=== PATIENT | female | born 1980 | race Caucasian/White ===

== ENCOUNTER 2019-03-05 12:51 | Emergency (ER) | payer MEDICAID ==
[~2019-03-05] VITALS: Ht 157.5 cm; Wt 65.9 kg
[2019-03-05 13:04] VITALS: BP 98/54
== END 2019-03-05 16:15 | disposition left against medical advice (07) ==
LOC: ER 12:51
DX: R06.02 Shortness of breath (principal); R07.9 Chest pain, unspecified; Z53.21 Procedure and treatment not carried out due to patient leaving prior to being seen by health care provider
CPT/HCPCS: 71045; 93005

== ENCOUNTER 2019-10-25 17:14 | Emergency (ER) | payer MEDICAID ==
[~2019-10-25] VITALS: Ht 165.1 cm; Wt 80.0 kg
[~2019-10-25 17:14] MED LIST: LIDOcaine 1% W/epiNEPHrine 1:100,000 20ml vial ONE
[2019-10-25 17:22] VITALS: BP 130/88
[2019-10-25] MEDS ORDERED: CEPH250T PO (19:12)
[2019-10-25] MEDS ORDERED: BACDS PO (19:12)
== END 2019-10-25 19:43 | disposition home or self-care (01) ==
LOC: ER 17:15
DX: L02.415 Cutaneous abscess of right lower limb (principal); Z88.8 Allergy status to other drugs, medicaments and biological substances; Z88.5 Allergy status to narcotic agent; Z60.2 Problems related to living alone; Z79.2 Long term (current) use of antibiotics; Z79.899 Other long term (current) drug therapy
CPT/HCPCS: 10060; 99283

== ENCOUNTER 2021-08-31 00:02 | Emergency (ER) | payer MEDICAID ==
[~2021-08-31] VITALS: Ht 157.5 cm; Wt 75.0 kg
[2021-08-31 00:31] VITALS: BP 133/80
[2021-08-31] MEDS ORDERED: LIDOcaine 1% 30ml preserv. free vial IJ ONE (01:05)
== END 2021-08-31 07:24 | disposition left against medical advice (07) ==
LOC: ER 00:04
DX: L02.416 Cutaneous abscess of left lower limb (principal); F17.200 Nicotine dependence, unspecified, uncomplicated; Z60.2 Problems related to living alone; Z88.5 Allergy status to narcotic agent; Z88.8 Allergy status to other drugs, medicaments and biological substances
CPT/HCPCS: 99281

== ENCOUNTER 2022-02-16 18:30 | Emergency (ER) | payer MEDICAID ==
[~2022-02-16] VITALS: Ht 154.9 cm; Wt 68.0 kg
[2022-02-16 18:42] VITALS: BP 131/76
[2022-02-16] MEDS ORDERED: iohexol 300mg/ml 100ml inj. ONE (20:50)
--- NOTE | 2022-02-16 21:26 | NUR ---
pt states she is unable to stay due to issues with childcare. MEENAKSHI Hamilton made aware and he discussed risks of leaving against medical advice. pt verbalized understanding and states that she would come back after picking up her child.
== END 2022-02-16 21:31 | disposition left against medical advice (07) ==
LOC: ER 18:31
DX: L02.416 Cutaneous abscess of left lower limb (principal); Z60.2 Problems related to living alone; Z88.5 Allergy status to narcotic agent; Z88.8 Allergy status to other drugs, medicaments and biological substances
CPT/HCPCS: 99281; 99284; Q9967

== ENCOUNTER 2022-06-10 18:57 | Emergency (ER) | payer MEDICAID ==
[~2022-06-10] VITALS: Ht 154.9 cm; Wt 72.7 kg
[2022-06-10 19:30] VITALS: BP 110/58
== END 2022-06-10 20:13 | disposition left against medical advice (07) ==
LOC: ER 18:58
DX: M25.511 Pain in right shoulder (principal); Z53.21 Procedure and treatment not carried out due to patient leaving prior to being seen by health care provider

== ENCOUNTER 2024-04-14 11:24 | Emergency (ER) | payer MEDICAID ==
[~2024-04-14] VITALS: Ht 157.5 cm; Wt 82.2 kg
[2024-04-14 12:53] VITALS: BP 13/59; PULSE 78; TEMP 97.6; O2SAT 100
[2024-04-14] MEDS: ketorolac trometh. 30mg/ml inj. IM ONE (13:47)
[2024-04-14] MEDS: ketorolac trometh. 30mg/ml inj. IV ONE (13:56)
[2024-04-14 13:57] VITALS: RESP 20
[2024-04-14] MEDS: ketorolac tromethamine 15mg/ml inj. IV ONE (13:57)
[2024-04-14] MEDS ORDERED: METH-798 PO (14:20)
[2024-04-14] MEDS ORDERED: HYDR-3965 PO (14:20)
== END 2024-04-14 15:09 | disposition home or self-care (01) ==
LOC: ER 11:25
DX: S30.0XXA Contusion of lower back and pelvis, initial encounter (principal); Z88.5 Allergy status to narcotic agent; Z88.8 Allergy status to other drugs, medicaments and biological substances; W18.2XXA Fall in (into) shower or empty bathtub, initial encounter; Y93.89 Activity, other specified; Y92.89 Other specified places as the place of occurrence of the external cause; Y99.8 Other external cause status
CPT/HCPCS: 72100; 96374; 99284; J1885